=== PATIENT | male | born 1980 | race Caucasian/White ===

== ENCOUNTER 2016-12-09 00:10 | Observation (INO) | payer MEDICAID ==
[~2016-12-09] VITALS: Ht 200.7 cm; Wt 109.0 kg
[2016-12-09 00:45] LABS: BLOOD UREA NITROGEN 18 mg/dL (7-18)
[2016-12-09 00:48] LABS: ACETAMINOPHEN < 2 mcg/mL (10-30)
[2016-12-09 01:21] LABS: DAU SCREEN DISCLAIMER
[2016-12-09] MEDS ORDERED: ACETAMINOPHEN 325 MG TABLET PO PRN (04:00)
[2016-12-09 04:19] VITALS: BP 136/86
[2016-12-09 08:25] VITALS: BP 120/75
[2016-12-09] MEDS: NICOTINE 21 MG/24 HR PATCH.TD24 TD SCH (09:00)
[2016-12-09] MEDS: POTASSIUM CHLORIDE 20 MEQ TAB.ER.PRT PO SCH ×3 (10:31→17:00)
[2016-12-09 12:06] LABS: BLOOD UREA NITROGEN 17 mg/dL (7-18)
[2016-12-09] MEDS ORDERED: POTASSIUM CHLORIDE 20 MEQ TAB.ER.PRT PO ONE (18:30)
[2016-12-09 20:00] VITALS: BP 113/71
[2016-12-10 08:00] VITALS: BP 129/80
[2016-12-10] MEDS: POTASSIUM CHLORIDE 20 MEQ TAB.ER.PRT PO SCH (08:00)
[2016-12-10] MEDS: NICOTINE 21 MG/24 HR PATCH.TD24 TD SCH (09:00)
[2016-12-10] MEDS ORDERED: KETOROLAC 30 MG/1 ML IM ONE (19:30)
[2016-12-10] MEDS ORDERED: LORazepam 1MG TABLET PO ONE (19:30)
[2016-12-10 20:00] VITALS: BP 140/94
[2016-12-11 07:34] VITALS: BP 152/90
[2016-12-11] MEDS: NICOTINE 21 MG/24 HR PATCH.TD24 TD SCH (09:25)
[2016-12-11] MEDS: LORazepam 1MG TABLET PO PRN ×2 (10:18→18:14)
[2016-12-11] MEDS ORDERED: HALOPERIDOL 5 MG TABLET PO ONE (19:30)
[2016-12-12 07:29] VITALS: BP 149/89
[2016-12-12] MEDS: NICOTINE 21 MG/24 HR PATCH.TD24 TD SCH (08:55)
[2016-12-12] MEDS: LORazepam 1MG TABLET PO PRN ×2 (12:09→18:35)
[2016-12-12] MEDS ORDERED: TRAZ50TA18 PO (16:23)
[2016-12-12] MEDS ORDERED: HYDR-3240 PO (16:23)
[2016-12-12] MEDS ORDERED: OLAN20TA7 PO (16:23)
[2016-12-12] MEDS ORDERED: HALOPERIDOL 5 MG TABLET ONE (19:11)
[2016-12-12 19:25] VITALS: BP 126/84
[2016-12-12] MEDS ORDERED: HALOPERIDOL 5 MG TABLET PO ONE (19:30)
[2016-12-12] MEDS ORDERED: TRAZODONE 100MG TABLET ONE (20:02)
[2016-12-12] MEDS ORDERED: TRAZODONE 50MG TABLET ONE (20:02)
[2016-12-12] MEDS: TRAZODONE 150MG TABLET PO PRN (20:05)
[2016-12-13 07:19] VITALS: BP 110/78
[2016-12-13] MEDS: NICOTINE 21 MG/24 HR PATCH.TD24 TD SCH (08:41)
[2016-12-13] MEDS: LORazepam 1MG TABLET PO PRN ×2 (11:06→18:03)
[2016-12-13] MEDS ORDERED: OLANZAPINE 5 MG TABLET ONE (19:15)
[2016-12-13] MEDS: OLANZAPINE 5 MG TABLET PO SCH (19:25)
[2016-12-13 19:34] VITALS: BP 138/89
[2016-12-14 07:39] VITALS: BP 145/96
[2016-12-14] MEDS: NICOTINE 21 MG/24 HR PATCH.TD24 TD SCH (08:59)
[2016-12-14] MEDS: LORazepam 1MG TABLET PO PRN (15:13)
[2016-12-14] MEDS: OLANZAPINE 5 MG TABLET PO SCH (19:30)
[2016-12-14 19:41] VITALS: BP 132/90
[2016-12-15 08:25] VITALS: BP 133/88
[2016-12-15] MEDS: NICOTINE 21 MG/24 HR PATCH.TD24 TD SCH ×2 (08:35→09:26)
[2016-12-15] MEDS: LORazepam 1MG TABLET PO PRN ×2 (09:54→15:14)
[2016-12-15] MEDS ORDERED: HALOPERIDOL 5 MG TABLET PO ONE (13:30)
[2016-12-15 20:21] VITALS: BP 108/70
[2016-12-15] MEDS: OLANZAPINE 5 MG TABLET PO SCH ×2 (21:00→23:47)
[2016-12-16] MEDS: TRAZODONE 150MG TABLET PO PRN (00:12)
[2016-12-16 08:25] VITALS: BP 142/81
[2016-12-16] MEDS: NICOTINE 21 MG/24 HR PATCH.TD24 TD SCH ×2 (09:00→10:47)
[2016-12-16] MEDS: LORazepam 1MG TABLET PO PRN (11:54)
== END 2016-12-16 16:05 ==
LOC: ED 01:21 → SUATTDRO 03:35 → EDIP 03:45 → 3E 04:30
PROVIDERS: ADMIT Internal Medicine; ATTEND Internal Medicine
DX: R45.851 Suicidal ideations (principal); E87.6 Hypokalemia; F20.0 Paranoid schizophrenia; R82.5 Elevated urine levels of drugs, medicaments and biological substances; R94.31 Abnormal electrocardiogram [ECG] [EKG]; Z91.14 Patient's other noncompliance with medication regimen; Z87.891 Personal history of nicotine dependence
CPT/HCPCS: 36415; 80048; 80307; 80329; 82040; 83735; 85025; 93005; 96372; 99285; G0378; J1885; G0480

== ENCOUNTER 2016-12-26 23:44 | Emergency (ER) | payer MEDICAID ==
[~2016-12-26] VITALS: Ht 200.7 cm; Wt 99.1 kg
[~2016-12-26 23:44] MED LIST: HYDR-3240 PO; OLAN20TA7 PO; TRAZ50TA18 PO
[2016-12-27 01:11] LABS: DAU SCREEN DISCLAIMER
[2016-12-27 01:32] LABS: BLOOD UREA NITROGEN 11 mg/dL (7-18)
[2016-12-27 01:36] LABS: ASPARTATE AMINO TRANSFERASE 115 U/L (15-37)
[2016-12-27 01:38] LABS: ACETAMINOPHEN < 2 mcg/mL (10-30)
[2016-12-27 03:15] VITALS: BP 126/86
== END 2016-12-27 04:46 | disposition home or self-care (01) ==
LOC: ED 23:59
DX: F15.251 Other stimulant dependence with stimulant-induced psychotic disorder with hallucinations (principal); F20.9 Schizophrenia, unspecified; F17.200 Nicotine dependence, unspecified, uncomplicated
CPT/HCPCS: 36415; 80053; 80307; 80329; 85025; 99284; G0480